=== PATIENT | male | born 1995 | race Caucasian/White ===

== ENCOUNTER → 2017-06-11 | Outpatient (REF) | payer OTHER | LOC: M LAB REF 13:41 | PROVIDERS: ATTEND Otolaryngology | DX: E04.1 Nontoxic single thyroid nodule (principal) ==

== ENCOUNTER 2017-08-11 05:55 | Day surgery (SDC) | payer OTHER ==
[~2017-08-11] VITALS: Ht 175.3 cm; Wt 74.8 kg
[2017-08-11] MEDS ORDERED: LR 1,000 ML IV SCH ×3 (06:00→11:00)
[2017-08-11] MEDS ORDERED: DESFLURANE 240 ML INHALANT As Ordered ONE (07:02)
[2017-08-11] MEDS ORDERED: dexameTHASONE 4 MG/ML 1ML VIAL (J1100) As Ordered ONE (07:09)
[2017-08-11] MEDS ORDERED: ROCURONIUM BROMIDE 50 MG/5 ML VIAL/SYRINGE As Ordered ONE (07:09)
[2017-08-11] MEDS ORDERED: ONDANSETRON 4MG/2ML VIAL (J2405) As Ordered ONE (07:09)
[2017-08-11] MEDS ORDERED: LIDOCAINE 2% INJ 100 MG/5 ML SDV (FOR ANES.) As Ordered ONE (07:09)
[2017-08-11] MEDS ORDERED: PROPOFOL 200 MG/20 ML VIAL As Ordered ONE (07:09)
[2017-08-11] MEDS ORDERED: BACITRACIN OINT 30GM As Ordered ONE (07:12)
[2017-08-11] MEDS ORDERED: LIDOCAINE W/EPINEPHRINE 1% 20ML VIAL As Ordered ONE (07:12)
[2017-08-11] MEDS ORDERED: fentaNYL 250 MCG/5 ML INJECTION (J3010) As Ordered ONE (07:13)
[2017-08-11] MEDS ORDERED: MIDAZOLAM INJ 2 MG/2 ML VIAL (J2250) As Ordered ONE (07:14)
[2017-08-11] MEDS ORDERED: METHYLENE BLUE 0.5% (5MG/ML) 10 ML AMP (PROVAYBLUE)(Q9968 PER 1MG) As Ordered ONE (07:29)
[2017-08-11] MEDS ORDERED: fentaNYL 100 MCG/2 ML INJECTION (J3010) As Ordered ONE (09:45)
[2017-08-11] MEDS ORDERED: HYDROmorphone HCL 1 MG/ML SYRINGE (J1170) IV PRN (11:00)
[2017-08-11] MEDS ORDERED: ONDANSETRON 4MG/2ML VIAL (J2405) IV PRN (11:00)
[2017-08-11] MEDS ORDERED: PERCOCET 5MG/325MG TAB PO PRN (11:00)
[2017-08-11] MEDS ORDERED: METOCLOPRAMIDE INJ 10MG/2ML VIAL (J2765) IV PRN (11:00)
[2017-08-11] MEDS: fentaNYL 100 MCG/2 ML INJECTION (J3010) IV PRN ×2 (11:02→11:10)
--- NOTE | 2017-08-11 11:25 | RO ---
DATE OF PROCEDURE: 08/11/2017 PREOPERATIVE DIAGNOSIS: Right thyroid mass. POSTOPERATIVE DIAGNOSIS: Right thyroid mass. PROCEDURE: Right thyroid lumpectomy. SURGEON: Judd Goodman MD ASSISTANTS: KRYSTEN Raygoza, and Ephraim Pace MD ANESTHESIA: FINDINGS: There was a lot of desmoplastic and fibrosis around the thyroid. It was tacked down to the muscle deep and superiorly. There was some edema superiorly. This made the dissection obliterate the normal tissue planes. DESCRIPTION OF PROCEDURE: Under general anesthesia with the patient intubated with a nerve monitoring tube, the patient was draped in the usual manner. Electrodes were hooked up. The patient was prepped and draped. I made a skin incision after I infiltrated with lidocaine and epinephrine. I divided the skin and subcutaneous tissues in the latissima. I dissected down and the strap muscles in the midline. I dissected down to the thyroid. I then dissected the strap muscles off of the thyroid. I then dissected around the thyroid mass. I dissected superiorly and went around the superior pole. I then went around the inferior pole and then dissected the tissue free. There was some remaining thyroid, so I then dissected it deeper, and I dissected around the inferior pole preserving the parathyroid gland. Prior to this, I had divided the isthmus. I dissected down the trachea. I dissected deep, dividing the vessels going into the gland. I then identified the recurrent laryngeal nerve and followed it up going into the larynx. I then dissected the remaining thyroid tissue off. The patient tolerated the procedure well. Less than 5 mL estimated blood loss. The wound was irrigated to make sure there was no bleeding. Once this was done, then I put some Surgicel in the wound. I trimmed the wound edges. I then closed the wound with interrupted 4-0 Vicryl and 5-0 nylon. The patient tolerated the procedure well. The nerve was intact and stimulated at the end of the procedure. The patient was extubated and transferred to the recovery room in excellent condition.
[2017-08-11 12:10] VITALS: BP 144/75
== END 2017-08-11 12:13 | disposition home or self-care (01) ==
LOC: M SDC 05:55
PROVIDERS: ATTEND Otolaryngology
DX: E04.1 Nontoxic single thyroid nodule (principal); Q23.1 Congenital insufficiency of aortic valve; Z88.1 Allergy status to other antibiotic agents; Z72.0 Tobacco use
CPT/HCPCS: 60200; 88307; 96374; J1100; J2250; J2405; J3010; Q9968

== ENCOUNTER → 2017-09-18 | Outpatient (CLI) | payer OTHER ==
[~2017-09-18] MED LIST: ACET30TAB PO; CALC1CAP31 PO; CALCD50TA PO
[2017-09-18 10:26] LABS: MEAN CORPUSCULAR HEMOGLOBIN 29.6 pg (27.0-33.0); MEAN CORPUSCULAR HGB CONC 33.6 g/dl (32.0-36.5); MEAN CORPUSCULAR VOLUME 87.9 fl (80.0-96.0); PLATELET COUNT, AUTOMATED 275 10^3/uL (150-450); WHITE BLOOD COUNT 7.2 10^3/uL (4.0-10.0)
[2017-09-18 11:13] LABS: ALBUMIN 4.1 GM/DL (3.2-5.2); ALBUMIN/GLOBULIN RATIO 1.46 (1.00-1.93); ALKALINE PHOSPHATASE 81 U/L (45-117); ALT/SGPT 45 U/L (12-78); ANION GAP 7 MEQ/L (8-16); AST/SGOT 14 U/L (7-37); BILIRUBIN,TOTAL 0.4 MG/DL (0.2-1.0); BLOOD UREA NITROGEN 15 MG/DL (7-18); CARBON DIOXIDE LEVEL 30 MEQ/L (21-32); CHLORIDE LEVEL 106 MEQ/L (98-107); CREATININE FOR GFR 0.96 MG/DL (0.70-1.30); GLOMERULAR FILTRATION RATE > 60.0 (>60); GLUCOSE, FASTING 91 MG/DL (70-105); SODIUM LEVEL 143 MEQ/L (136-145); TOTAL PROTEIN 6.9 GM/DL (6.4-8.2)
--- NOTE | 2017-09-18 14:53 | ECGEPIP ---
Stationary ECG Study [facility] Test Date: 2017-09-18 Pat Name: WEI DOWD Department: Room: - Gender: M [employer]: [facility] : 1995 Requested By: Rodrick Holman Order Number: [id number] Reading MD: Rachid Segal Measurements Intervals [place] Rate: 73 P: 24 ND: 145 QRS: 29 QRSD: 98 T: 37 QT: 385 QTc: 425 Interpretive Statements SINUS RHYTHM POSSIBLE RIGHT VENTRICULAR CONDUCTION DELAY No prior tracing in the system Electronically Signed On 09-18-2017 14:53:05 EST by Rachid Segal
== END ==
LOC: M LAB 09:57
PROVIDERS: ATTEND Internal Medicine
DX: Z01.818 Encounter for other preprocedural examination (principal); E04.9 Nontoxic goiter, unspecified

== ENCOUNTER 2017-09-22 09:10 | Day surgery (SDC) | payer OTHER ==
[~2017-09-22] VITALS: Ht 175.3 cm; Wt 75.0 kg
[2017-09-22] MEDS ORDERED: BACITRACIN OINT 30GM As Ordered ONE (11:01)
[2017-09-22] MEDS ORDERED: LIDOCAINE W/EPINEPHRINE 1% 20ML VIAL As Ordered ONE (11:01)
[2017-09-22] MEDS ORDERED: MIDAZOLAM INJ 2 MG/2 ML VIAL (J2250) As Ordered ONE (11:51)
[2017-09-22] MEDS ORDERED: fentaNYL 250 MCG/5 ML INJECTION (J3010) As Ordered ONE (11:51)
[2017-09-22] MEDS ORDERED: SUCCINYLCHOLINE 100 MG/5 ML SYRINGE (J0330) As Ordered ONE (11:51)
[2017-09-22] MEDS ORDERED: PROPOFOL 500 MG/50 ML VIAL As Ordered ONE (11:51)
[2017-09-22] MEDS ORDERED: ROCURONIUM BROMIDE 50 MG/5 ML VIAL/SYRINGE As Ordered ONE (11:52)
[2017-09-22] MEDS ORDERED: dexameTHASONE 4 MG/ML 1ML VIAL (J1100) As Ordered ONE (11:52)
[2017-09-22] MEDS ORDERED: ONDANSETRON 4MG/2ML VIAL (J2405) As Ordered ONE (11:52)
[2017-09-22] MEDS ORDERED: DESFLURANE 240 ML INHALANT As Ordered ONE (12:09)
[2017-09-22] MEDS ORDERED: LIDOCAINE 2% INJ 100 MG/5 ML SDV (FOR ANES.) As Ordered ONE (12:18)
[2017-09-22] MEDS ORDERED: PHENYLephrine HCL 500 MCG/5 ML (100MCG/ML) SYRINGE (J2370) As Ordered ONE ×2 (12:20→12:22)
[2017-09-22] MEDS ORDERED: ePHEDrine SULFATE 25 MG/5 ML(5MG/ML) SYRINGE As Ordered ONE ×2 (12:20→12:22)
[2017-09-22] MEDS ORDERED: HYDROmorphone HCL 2 MG/ML 1ML VIAL (J1170) As Ordered ONE (14:07)
[2017-09-22] MEDS: LR 1,000 ML IV SCH (14:26)
[2017-09-22] MEDS ORDERED: MEPERIDINE INJ 25 MG/ML VIAL (J2175) IV PRN (14:45)
[2017-09-22] MEDS ORDERED: PERCOCET 5MG/325MG TAB PO PRN (14:45)
[2017-09-22] MEDS ORDERED: fentaNYL 100 MCG/2 ML INJECTION (J3010) IV PRN (14:45)
[2017-09-22] MEDS ORDERED: METOCLOPRAMIDE INJ 10MG/2ML VIAL (J2765) IV PRN (14:45)
[2017-09-22] MEDS ORDERED: ONDANSETRON 4MG/2ML VIAL (J2405) IV PRN (14:45)
[2017-09-22] MEDS ORDERED: LR 1,000 ML IV SCH (14:45)
[2017-09-22] MEDS ORDERED: ACETAMINOPH W/CODEINE #3 TAB UD PO PRN (15:00)
[2017-09-22] MEDS ORDERED: CALCITRIOL 0.25 MCG CAP (S0169) PO SCH (16:00)
[2017-09-22] MEDS: CALCIUM CARBONATE 500 MG CHEW U/D PO SCH ×2 (16:00→16:45)
--- NOTE | 2017-09-22 16:05 | RO ---
DATE OF PROCEDURE: 09/22/2017 PREOPERATIVE DIAGNOSIS: Thyroid cancer. POSTOPERATIVE DIAGNOSIS: Thyroid cancer. OPERATIVE PROCEDURE: Left thyroid lobectomy. The NIM monitor was used during the procedure. The recurrent laryngeal nerve was intact and stimulated at the end of the procedure. SURGEON: Judd Goodman MD DEICER REPAIRER: Rodrick Neil ANESTHESIA: General. ESTIMATED BLOOD LOSS: Approximately 50 mL. DESCRIPTION OF PROCEDURE: Under general anesthesia with the patient intubated, and the patient draped in the usual manner, the patient was intubated with nerve monitoring tube. The electrodes were hooked up. The patient was prepped and draped in the usual manner. I infiltrated the incision with lidocaine with epinephrine. I made a skin incision dividing the skin and subcutaneous tissues. I dissected down to the trachea. I divided the strap muscles in the midline. I divided the strap muscles on the left side. There was a lot of scarring from the previous surgery. I dissected until I found the left lobe of the thyroid. I then dissected around the left lobe. Once this was done, the inferior aspect was easy to get around. The superior aspect went quite high. I dissected around it using cautery and Harmonic scalpel. I mobilized the medial part of the left lobe of the thyroid. Then I dissected laterally. Identified the middle parathyroid gland and dissected it free from the gland. I stayed close to the inferior aspect, so I did not see inferior parathyroid. I dissected inferiorly, posteriorly and then superiorly and then delivered the thyroid from the wound. The recurrent laryngeal nerve was seen, identified, stimulated and was intact. I irrigated the wound to make sure there was no bleeding. The vessels seen bleeding were cauterized with bipolar cautery. When there was no bleeding, then I put in some Surgicel. I closed the wound with #4-0 Vicryl and then #5-0 nylon. I did excise the wound edges of the last surgery incision. No drain was inserted. Less than 50 mL estimated blood loss. The patient extubated and transferred to the recovery room in excellent condition.
[2017-09-22 16:45] VITALS: BP 125/83
[2017-09-22] MEDS: CALCITRIOL 0.25 MCG CAP (S0169) PO SCH (17:01)
[2017-09-22 17:15] VITALS: BP 124/81
[2017-09-22 19:15] VITALS: BP 120/69
[2017-09-22 20:15] VITALS: BP 121/68
[2017-09-23] MEDS: LR 1,000 ML IV SCH (00:08)
[2017-09-23 00:15] VITALS: BP 119/66
[2017-09-23 06:00] VITALS: BP 110/66
[2017-09-23] MEDS: CALCIUM CARBONATE 500 MG CHEW U/D PO SCH (08:42)
[2017-09-23] MEDS: CALCITRIOL 0.25 MCG CAP (S0169) PO SCH (08:43)
[2017-09-23] MEDS ORDERED: ACET30TAB PO (09:25)
[2017-09-23] MEDS ORDERED: CALC1CAP31 PO (09:25)
[2017-09-23] MEDS ORDERED: CALCD50TA PO (09:25)
== END 2017-09-23 09:50 | disposition home or self-care (01) ==
LOC: M SDC 09:10 → M MS5PR 16:50 → M SDC 09-23 09:50
PROVIDERS: ATTEND Otolaryngology
DX: C73 Malignant neoplasm of thyroid gland (principal); Q22.1 Congenital pulmonary valve stenosis; Z72.0 Tobacco use; Z88.1 Allergy status to other antibiotic agents
CPT/HCPCS: 36415; 60260; 83970; 88307; J0330; J1100; J1170; J2250; J2370; J2405; J3010

== ENCOUNTER → 2017-10-16 | Outpatient (CLI) | payer OTHER | LOC: M LAB 14:27 | PROVIDERS: ATTEND Otolaryngology | DX: C73 Malignant neoplasm of thyroid gland (principal) ==

== ENCOUNTER → 2017-12-16 | Outpatient (CLI) | payer OTHER ==
[2017-12-16 15:45] LABS: PTH INTACT 14.1 PG/ML (18.5-88.0)
== END ==
LOC: M LAB 14:14
DX: C73 Malignant neoplasm of thyroid gland (principal)
CPT/HCPCS: 83970